=== PATIENT | male | born 1985 | race Asian ===

== ENCOUNTER → 2025-05-08 | Outpatient (CLI) | payer OTHER ==
[2025-05-13 06:06] LABS: QUANTIFERON+, Nil Value 0.06 IU/mL; QUANTIFERON+,Mitogen Value >10.00 IU/mL; QUANTIFERON+,TB1 Antigen Value 0.07 IU/mL; QUANTIFERON+,TB2 Antigen Value 0.08 IU/mL; QUANTIFERON, TB GOLD PLUS Negative (Negative)
== END | disposition home or self-care (01) ==
LOC: LABMN 13:06
PROVIDERS: ATTEND Internal Medicine
DX: Z20.1 Contact with and (suspected) exposure to tuberculosis (principal)
CPT/HCPCS: 86480